=== PATIENT | male | born 1980 ===

== ENCOUNTER → 2018-04-06 | Outpatient (CLI) | payer OTHER ==
[2018-04-09 01:12] LABS: CHLAMYDIA TRACHOMATIS, NAA Negative (Negative); NEISSERIA GONORRHOEAE, NAA Negative (Negative)
== END ==
LOC: LAB 08:26 → EDSEX 08:26 → LAB SHORT 08:26
DX: N34.1 Nonspecific urethritis (principal)
CPT/HCPCS: 87491; 87591